=== PATIENT | male | born 2000 | race African-American/Black ===

== ENCOUNTER 2022-03-18 11:58 | Emergency (ER) | payer OTHER, SELFPAY ==
[2022-03-18] MEDS ORDERED: Lidocaine 1% w/Epinephrine 1:200K 30 ML VIAL ONE (12:12)
[2022-03-18] MEDS ORDERED: Lidocaine 1% (PF) 30 ML VIAL ONE (13:14)
== END 2022-03-18 14:18 | disposition home or self-care (01) ==
LOC: CSHERS 11:58
DX: S61.211A Laceration without foreign body of left index finger without damage to nail, initial encounter (principal); S61.217A Laceration without foreign body of left little finger without damage to nail, initial encounter; S61.213A Laceration without foreign body of left middle finger without damage to nail, initial encounter; S61.215A Laceration without foreign body of left ring finger without damage to nail, initial encounter; S61.012A Laceration without foreign body of left thumb without damage to nail, initial encounter; S61.210A Laceration without foreign body of right index finger without damage to nail, initial encounter; S61.216A Laceration without foreign body of right little finger without damage to nail, initial encounter; S61.212A Laceration without foreign body of right middle finger without damage to nail, initial encounter; S61.214A Laceration without foreign body of right ring finger without damage to nail, initial encounter; W25.XXXA Contact with sharp glass, initial encounter
CPT/HCPCS: 12002; J2001